=== PATIENT | male | born 2000 | race Caucasian/White ===

== ENCOUNTER 2018-05-21 21:37 | Emergency (ER) | payer BC, MEDICAID ==
[~2018-05-21] VITALS: Ht 195.6 cm; Wt 90.7 kg
[~2018-05-21 21:37] MED LIST: LORA10TA7; MUPI22OI2; RT-ALBUINH; flexeril PO
[2018-05-21] MEDS ORDERED: NF-CIPDEC OT (22:04)
[2018-05-21] MEDS ORDERED: ACHD5005 PO (22:04)
--- NOTE | 2018-05-21 22:04 | ED EENT ---
History of Present Illness General Chief Complaint: Ear Problems Stated Complaint: R EAR PAIN Nursing Triage Note: PT REPORTS R EAR PAIN SINCE HITTING IS FACE IN THE WATER WHEN JUMPING INTO A POOL TWO DAYS AGO. REPORTS USED "SWIMMERS EAR DROPS" TODAY AND HAD PAIN/BURNING AFTER. History of Present Illness Date Seen by Provider: May 21, 2018 Time Seen by Provider: 22:01 Initial Comments Patient is a 17-year-old male who presents to the emergency room accompanied by his parents with reports of right ear pain. He reports that he was jumping into a pool 2 days ago and landed on his right side of his face causing ear pain and felt like there was water in his ear. His mother put in swimmer's eardrops in his right ear and caused pain, bleeding and burning. Timing/Duration: yesterday Location: ear (R) Prearrival Treatment: other (swimmer's ear and cotton balls.) Associated Symptoms: ear drainage (bloody ear drainage.) Allergies and Home Medications Allergies Coded Allergies: No Known Drug Allergies (Unverified , 07/07/16) Home Medications Ciprofloxacin HCl/Dexameth 7.5 Ml Soln, 7.5 ML OT BID PRN for 4 drops to the right ear Prescribed by: MICHELE ROMEO on 05/21/182203 Hydrocodone Bit/Acetaminophen 1 Tab Tab, 1 EACH PO Q6H PRN for PAIN Prescribed by: MICHELE ROMEO on 05/21/182203 [flexeril] , 5 MG PO TID PRN for PAIN Prescribed by: BI ALFONSO on 07/07/16 1507 Patient Home Medication List Home Medication List Reviewed: Yes Review of Systems Constitutional: see HPI; No chills, No diaphoresis, No fever Eyes: No Symptoms Reported Ears: See HPI, Pain (right ear), Bloody Discharge Nose: see HPI; denies clots, denies congestion Mouth: see HPI; denies clots, denies loose teeth Throat: see HPI; denies pain, denies swelling, denies discharge Respiratory: see HPI; No cough, No dyspnea on exertion Cardiovascular: see HPI; No chest pain Gastrointestinal: see HPI; No abdominal pain, No constipation Musculoskeletal: see HPI; No back pain, No gout Skin: see HPI; No change in color, No change in hair/nails Neurological: See HPI; Denies Anxiety, Denies Depressed Hematologic/Lymphatic: See HPI; Denies Anemia, Denies Blood Clots Immunological/Allergic: see HPI; denies food allergy, denies grass allergy All Other Systems Reviewed Negative Unless Noted: Yes Past Dhkkkdu-Olgone-Iimvox Hx Past Med/Social Hx: Reviewed Nursing Past Med/Soc Hx Patient Social History Alcohol Use: Denies Use Recreational Drug Use: No Smoking Status: Never a Smoker Recent Foreign Travel: No Contact w/Someone Who Travel: No Recent Infectious Disease Expo: No Recent Hopitalizations: No Physical Abuse: No Sexual Abuse: No Mistreated: No Fear: No Seasonal Allergies Seasonal Allergies: No Past Medical History Surgeries: Yes Ear Surgery, Tonsillectomy Respiratory: Yes Asthma Cardiac: No Neurological: No Genitourinary: No Gastrointestinal: No Musculoskeletal: No Endocrine: No HEENT: No Cancer: No Psychosocial: No Nursing Suicide Risk Score: 0 Integumentary: No Family Medical History Reviewed Nursing Family Hx Physical Exam Vital Signs Vital Signs - First Documented 05/21/18 05/21/18 21:49 22:14 Temp 98.5 Pulse 86 Resp 20 B/P (MAP) 134/80 Pulse Ox 99 Height, Weight, BMI Height: 6'5.00" Weight: 200lbs. oz. [id number]; 21.09 BMI Method:Stated General Appearance: WD/WN, no apparent distress Eyes: bilateral eye normal inspection, bilateral eye PERRL, bilateral eye EOMI Ears: right ear auricle normal, right ear bleeding, right ear TM perforation, right ear other (possible blown out tympanic membrane.); left ear canal normal, left ear TM normal Nose: normal inspection, active bleeding, discharge Mouth/Throat: normal mouth inspection, pharynx normal Neck: non-tender, full range of motion, supple, normal inspection Cardiovascular: regular rate, rhythm, no edema, no gallop, no JVD, no murmur Respiratory: chest non-tender, lungs clear, normal breath sounds, no respiratory distress, no accessory muscle use Gastrointestinal: normal bowel sounds, non tender, soft, no organomegaly, no pulsatile mass Neurologic/Psychiatric: alert, normal mood/affect, oriented x 3 Skin: normal color, warm/dry Progress/Results/Core Measures Results/Orders Vital Signs/I&O 05/21/18 05/21/18 21:49 22:14 Temp 98.5 Pulse 86 87 Resp 20 20 B/P (MAP) 134/80 Pulse Ox 99 Progress Progress Note : Time: 21:59 Progress Note Spoke to Paris Fan's nurse practitioner on-call. She recommended using Ciprodex drops 4 drops twice a day to the affected ear for one week, pain control, and following up with Dr. Fan's office later this week. The patient was informed of this prescriptions were given and contact information for Dr. Fan's office was provided. Departure Impression Primary Impression: Perforated right tympanic membrane on examination Disposition: HOME, SELF-CARE Condition: Stable/Unchanged Departure-Patient Inst. Decision time for Depature: 22:01 Referrals: VITOR FAN MD [facility] (PCP/Family) Primary Care Physician Patient Instructions: Ruptured Eardrum Add. Discharge Instructions: Use medication as directed. Call Dr. Fan's clinic first thing in the morning for appointment time. Absolutely no swimming, try to avoid getting the ear wet even when you're in the shower. Return back to the emergency room for any increased pain, fevers, nausea, vomiting or any other concerns as needed. All discharge instructions reviewed with patient and/or family. Voiced understanding. Scripts Ciprofloxacin HCl/Dexameth (Ciprodex Otic Suspension) 7.5 Ml Soln 7.5 ML OT BID PRN for 4 drops to the right ear for 7 Days, #1 EA Prov: MICHELE ROMEO 05/21/18 Hydrocodone Bit/Acetaminophen (Hydrocodone/Acetaminophen 5/325mg Tablet) 1 Tab Tab 1 EACH PO Q6H PRN for PAIN, #10 TAB Prov: MICHELE ROMEO 05/21/18 MICHELE ROMEO May 21, 2018 22:04
== END 2018-05-21 22:14 | disposition home or self-care (01) ==
LOC: EDUNIT# 21:37 → ER 21:39
DX: H72.91 Unspecified perforation of tympanic membrane, right ear (principal); J45.909 Unspecified asthma, uncomplicated; Z90.89 Acquired absence of other organs; W16.512A Jumping or diving into swimming pool striking water surface causing other injury, initial encounter
CPT/HCPCS: 99282